=== PATIENT | male | born 1955 | race Native Hawaiian/Other Pacific Islander ===

== ENCOUNTER 2021-08-10 13:40 | Outpatient (CLI) | payer OTHER | END 2021-08-10 21:20 | disposition home or self-care (01) | LOC: RAD 13:40 | PROVIDERS: ATTEND Nurse Practitioner | DX: R59.0 Localized enlarged lymph nodes (principal) ==

== ENCOUNTER 2022-07-10 12:07 | Outpatient (CLI) | payer OTHER | END 2022-07-10 21:00 | disposition home or self-care (01) | LOC: RAD 12:07 | PROVIDERS: ATTEND Orthopaedic Surgery | DX: M25.552 Pain in left hip (principal) ==

== ENCOUNTER 2022-07-25 08:36 | Outpatient (CLI) | payer OTHER | END 2022-07-25 19:01 | disposition home or self-care (01) | LOC: MRI 08:36 | PROVIDERS: ATTEND Orthopaedic Surgery | DX: M51.36 Other intervertebral disc degeneration, lumbar region (principal) ==